=== PATIENT | female | born 1985 | race Caucasian/White ===

== ENCOUNTER 2025-06-08 13:33 | Outpatient (REF) | payer MEDICAID, SELFPAY ==
--- OUTSIDE RECORDS SUMMARY | 2025-06-08 10:15 | XMS_ITS | Encounter Summary ---
Author Organization [employer] Address [address] [place] [address] 7 [place] [address] Care Team Providers Care Technical Data Analyst Name Role Phone Missy eVra MD Primary Care Provide r Reason for Referral * Imaging (Routine) - Authorized Specialty Diagnoses / Procedures Referred By Huong azevedo Referred To Contact Radiology Diagnoses Encounter for screening mammogram for malignant neoplasm of breast Procedures BI Mammogram Screening Tomosynthesis Bilateral Missy Vera MD [address] [place] [address] Phone: tel: fax: [address] [phone] Phone: tel: fax: Referral ID Status Reason Start Date Expiration Date V isits Requested Visits Authorized [id number] Authorized 06/08/2025 06/08/2026 1 1 * Consultation (Routine) - Authorized Specialty Diagnoses / Procedures Referred By Huong azevedo Referred To Contact Nutrition Diagnoses Class 1 obesity due to excess calories without serious comorbidity with body mass index (BMI) of 33.0 to 33.9 in adult Missy Vera MD [address] [place] [address] Phone: tel: fax: Referral ID Status Reason Start Date Expiration Date Visits Requested Visits Authorized [id number] Authorized Consult and Treat 06/08/2025 06/08/2026 1 1 Encounter Details Date Type Department Care Team (Late st Contact Info) Description 06/08/2025 10:15 AM EST Office Visit [facility] [address] [place] [address] Missy Vera MD [address] [place] [address] Loss of libido (Primary Dx); Dietary counseling; Exercise counseling; Class 1 obesity due to excess calories without serious comorbidity with body mass index (BMI) of 33.0 to 33.9 in adult; Hirsutism; Hair loss; Epidermoid cyst; Encounter for screening mammogram for malignant neoplasm of breast; Encounter for immunization Social History Tobacco Use Types Packs/Day Years Used Date Smoking Tobacco: Never Smokeless Tobacco: Never Comments Unknown Sex and Gender Information Value Date Recorded Sex Assigned at Female 04/06/2025 8:51 AM EDT Legal Sex Female 10:42 AM EDT Gender Identity Female 04/06/2025 8:51 AM EDT Sexual Orientation Straight 04/06/2025 8: 51 AM EDT documented as of this encounter Last Filed Vital Signs Vital Sign Reading Time Taken Comments Blood Pressure 130/96 06/08/2025 10:31 AM EST Pulse 72 06/08/2025 10:31 AM EST Temperature 36.2 C (97.1 F) 06/08/2025 10:31 AM EST Respiratory Rate 17 06/08/2025 10:31 AM EST Oxygen Saturation 98% 06/08/2025 10:31 AM EST Inhaled Oxygen Concentration - - Weight 86.7 kg (191 lb 3.2 oz) 06/08/2025 10:31 AM EST Height 162 cm (5' 3.78 ) 06/08/2025 10:31 AM EST Body Mass Index 33.05 06/08/2025 10:31 AM EST documented in this encounter Progress Notes * Missy Shepard MD - 06/08/2025 10:15 AM EST SUBJECTIVE: Mónica Salas is a 40 y.o. year old female who presents for New Patient . 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 Negative for activity change, appetite change, chills, diaphoresis, fatigue and fever. HENT: Negative. Respiratory: Negative. Cardiovascular: Negative. Gastrointestinal: Negative. Genitourinary: Loss of libido Skin: Hair loss Weak nails OBJECTIVE: Vitals: 06/08/25 1031 BP: (!) 130/96 BP Location: Left arm Patient Position: Sitting BP Cuff Size: Adult Pulse: 72 Resp: 17 Temp: 97.1 ??F (36.2 ??C) TempSrc: Temporal SpO2: 98% Weight: 191 lb 3.2 oz (86.7 kg) Height: 5' 3.78 (1.62 m) Physical Exam Constitutional: Appearance: Normal appearance. Cardiovascular: Rate and Rhythm: Normal rate and regular rhythm. Pulmonary: Effort: Pulmonary effort is normal. Breath sounds: Normal breath sounds. Abdominal: General: Abdomen is flat. Palpations: Abdomen is soft. Musculoskeletal: Right lower leg: No edema. Left lower leg: No edema. Neurological: Mental Status: She is alert. Follow Up: Follow up for [facility] P[facility] . Medications Ordered Prior to Encounter[3] Problem List Items Addressed This Visit Class 1 obesity due to excess calories without serious comorbidity with body mass index (BMI) of 33.0 to 33.9 in adult Today extensive discussion was done about life style modifications I advise healthy diet (low calorie) and cardiovascular exercise Referral to nutrtionist Blood work ordered Patient will be contacted with results Relevant Orders Referral to Nutrition Therapy CBC auto differential Comprehensive Metabolic Panel Hemoglobin A1c HIV-1/2 Antigen and Antibodies, Fourth Generation, with Reflexes Hepatitis C Antibody with Reflex to HCV, RNA, Quantitative, Real-Time PCR Lipid Panel, Standard Vitamin D, 25-Hydroxy, Total, Immunoassay TSH with Reflex to Free T4 Loss of libido - Primary Relevant Orders FSH LH Hirsutism Relevant Orders FSH LH Anti-Mullerian Hormone (AMH), Female Hair loss Epidermoid cyst Patient is schedule for surgery on 08/10/24 Encounter for screening mammogram for malignant neoplasm of breast Relevant Orders BI Mammogram Screening Tomosynthesis Bilateral Other Visit Diagnoses Dietary counseling Exercise counseling Encounter for immunization Relevant Orders FLU VACCINE TRIVALENT [id number] (Fluarix) 19 yrs + (Completed) COVID-19 VACCINE [id number] (Comirnaty) 19 yrs + (Completed) [1] Patient Active Problem List Diagnosis Epidermoid cyst Difficulty losing weight Dizziness Hair loss Loss of libido Pain, arm, right Hirsutism Encounter for screening mammogram for malignant neoplasm of breast Class 1 obesity due to excess calories without serious comorbidity with body mass index (BMI) of 33.0 to 33.9 in adult [2] No family history on file. [3] No current outpatient medications on file prior to visit. No current facility-administered medications on file prior to visit. documented in this encounter Miscellaneous Notes * Assessment & Plan Note - Missy Shepard MD - 06/08/2025 12:59 PM EST Associated Problem(s): Class 1 obesity due to excess calories without serious comorbidity with bodymass index (BMI) of 33.0 to 33.9 in adult Today extensive discussion was done about life style modifications I advise healthy diet (low calorie) and cardiovascular exercise Referral to nutrtionist Blood work ordered Patient will be contacted with results * Assessment & Plan Note - Missy Shepard MD - 06/08/2025 10:40 AM EST Associated Problem(s): Epidermoid cyst Patient is schedule for surgery on 08/10/24 documented in this encounter Plan of Treatment Upcoming Encounters Date Type Department Care Team (Late st Contact Info) Description 07/04/2025 10:00 AM EST Telemedicine [facility] [address] [place] [address] Missy Vera MD [address] [place] [address] Scheduled Orders Name Type Priority Associated Diagnoses Orde r Schedule Comprehensive Metabolic Panel Lab Routine Class 1 obesity due to excess calories without serious comorbidity with body mass index (BMI) of 33.0 to 33.9 in adult Expected: 06/08/2025 (Approximate), Expires: 06/08/2026 HIV-1/2 Antigen and Antibodies, Fourth Generation, with Reflexes Lab Routine Class 1 obesity due to excess calories without serious comorbidity with body mass index (BMI) of 33.0 to 33.9 in adult Expected: 06/08/2025 (Approximate), Expires: 06/08/2026 Hepatitis C Antibody with Reflex to HCV, RNA, Quantitative, Real-Time PCR Lab Routine Class 1 obesity due to excess calories without serious comorbidity with body mass index (BMI) of 33.0 to 33.9 in adult Expected: 06/08/2025, Expires: 06/08/2026 Lipid Panel, Standard Lab Routine Class 1 obesity due to excess calories without serious comorbidity with body mass index (BMI) of 33.0 to 33.9 in adult Expected: 06/08/2025 (Approximate), Expires: 06/08/2026 Vitamin D, 25-Hydroxy, Total, Immunoassay Lab Routine Class 1 obesity due to excess calories without serious comorbidity with body mass index (BMI) of 33.0 to 33.9 in adult Expected: 06/08/2025 (Approximate), Expires: 06/08/2026 TSH with Reflex to Free T4 Lab Routine Class 1 obesity due to excess calories without serious comorbidity with body mass index (BMI) of 33.0 to 33.9 in adult Expected: 06/08/2025 (Approximate), Expires: 06/08/2026 FSH Lab Routine Loss of libido Hirsutism Expected: 06/08/2025, Expires: 06/08/2026 LH Lab Routine Loss of libido Hirsutism Expected: 06/08/2025 (Approximate), Expires: 06/08/2026 Anti-Mullerian Hormone (AMH), Female Lab Routine Hirsutism Expected: 06/08/2025 (Approximate), Expires: 06/08/2026 BI Mammogram Screening Tomosynthesis Bilateral Imaging Routine Encounter for screening mammogram for malignant neoplasm of breast Expected: 06/08/2025, Expires: 08/09/2026 Scheduled Referrals Name Type Priority Associated Diagnoses Orde r Schedule Referral to Nutrition Therapy Outpatient Referral Routine Class 1 obesity due to excess calories without serious comorbidity with body mass index (BMI) of 33.0 to 33.9 in adult Expected: 06/08/2025 (Approximate), Expires: 06/08/2026 documented as of this encounter Procedures Procedure Name Priority Date/Time Associated Diagnosis Comments CBC WITH AUTO DIFFERENTIAL Routine 06/08/2025 1:42 PM EST Class 1 obesity due to excess calories without serious comorbidity with body mass index (BMI) of 33.0 to 33.9 in adult HEMOGLOBIN A1C Routine 06/08/2025 1:42 PM EST Class 1 obesity due to excess calories without serious comorbidity with body mass index (BMI) of 33.0 to 33.9 in adult documented in this encounter Results * Hemoglobin A1c (06/08/2025 1:42 PM EST) Hemoglobin A1c 5.5 <6.0 % [facility] Comment:Hemoglobin A1C Refer ence Range Adults: 4.8 - 6.0 % Non diabetic: < 6.0 % Goal: < 7.0 %Additional Action Suggested: > 8.0 %Note: Hemoglobin A1c results are invalid for patients with abnormal amounts of HbF. Blood transfusions may impact the HbA1c concentration in the patient sample. Estimated Average Glucose 111 mg/dL [facility] Comment:eAG = Estimated ave rage glucose which is %A1C expressed asaverage glucose, using the formula of the V3F-AygmsixNvitvvn Glucose study (ADAG), Diabetes Care, Vol.31,#8,2007 Blood Venous blood specimen / Unknown 06/08/2025 1:42 PM EST 06/08/2025 4:05 PM EST us Missy Shepard MD LAB BLOOD ORDERABLES Final Result [facility] [address] [place] [address] [phone] * CBC auto differential (06/08/2025 1:42 PM EST) White Blood Count 7.3 4.8 - 10.8 X10*3/uL [facility] Red Blood Count 4.81 4.20 - 5.50 X10*6/uL [facility] Hemoglobin 13.8 12.0 - 16.0 g/dl [facility] Hematocrit 40.8 37.0 - 47.0 % [facility] Mean Corpuscular Volume 84.8 80.0 - 98.0 fL [facility] Mean Corpuscular Hemoglobin 28.7 27.0 - 33.0 pg [facility] Mean Corpuscular HGB Conc 33.8 31.0 - 35.0 g/dl [facility] Red Cell Distribution Width 12.8 11.0 - 16.0 % [facility] Platelet Count 272 160 - 400 X10*3/uL [facility] Mean Platelet Volume 10.2 9.4 - 12.3 fL [facility] Neutrophils Percent Auto 60.9 45 - 73 % [facility] Imm Gran Pct Auto 0.4 0.0 - 0.4 % [facility] Lymphocytes Percent Auto 29.5 20 - 40 % [facility] Monocytes Percent Auto 7.3 2 - 11 % [facility] Eosinophils Percent Auto 1.2 0 - 4 % [facility] Basophils Percent Auto 0.7 0 - 2 % [facility] NRBC Pct Auto 0.0 0.0 - 0.2 /100WBC [facility] Neutrophils Absolute Auto 4.5 2.0 - 8.3 x10*3/uL [facility] Imm Gran Abs Auto 0.03 0.00 - 0.03 X10*3/uL [facility] Lymphocytes Absolute Auto 2.2 1.2 - 4.9 X10*3/uL [facility] Monocytes Absolute Auto 0.5 0.1 - 1.2 X10*3/uL [facility] Eosinophils Absolute Auto 0.1 0.0 - 0.4 X10*3/uL [facility] Basophils Absolute Auto 0.1 0.0 - 0.2 X10*3/uL [facility] NRBC Abs Auto 0.000 0.0 - 0.012 X10*3/uL [facility] Blood Venous blood specimen / Unknown 06/08/2025 1:42 PM EST 06/08/2025 4:05 PM EST us Missy Shepard MD LAB BLOOD ORDERABLES Final Result [facility] [address] [place] [address] [phone] documented in this encounter Visit Diagnoses Diagnosis Loss of libido- Primary Decreased libido Dietary counseling Dietary surveillance and counseling Exercise counseling Class 1 obesity due to excess calories without serious comorbidity with body mass index (BMI) of 33.0 to 33.9 in adult Hirsutism Hair loss Unspecified alopecia Epidermoid cyst Sebaceous cyst Encounter for screening mammogram for malignant neoplasm of breast Encounter for immunization documented in this encounter Care Teams Technical Data Analyst Relationship Specialty Start Date End Date Missy Vera MD [address] [place] [phone] PCP - General Internal Medicine 06/08/25 documented as of this encounter
[2025-06-08 16:09] LABS: MANUAL DIFF FLAG NO
[2025-06-08 16:15] LABS: Hematocrit 40.8 % (37.0-47.0); Hemoglobin 13.8 g/dl (12.0-16.0); Imm Gran Abs Auto 0.03 X10*3/uL (0.00-0.03); Imm Gran Pct Auto 0.4 % (0.0-0.4); Lymphocytes Absolute Auto 2.2 X10*3/uL (1.2-4.9); Mean Corpuscular HGB Conc 33.8 g/dl (31.0-35.0); Mean Corpuscular Hemoglobin 28.7 pg (27.0-33.0); Mean Corpuscular Volume 84.8 fL (80.0-98.0); NRBC Abs Auto 0.000 X10*3/uL (0.0-0.012); NRBC Pct Auto 0.0 /100WBC (0.0-0.2); Platelet Count 272 X10*3/uL (160-400); Red Blood Count 4.81 X10*6/uL (4.20-5.50); White Blood Count 7.3 X10*3/uL (4.8-10.8)
--- OUTSIDE RECORDS SUMMARY | 2025-06-08 17:43 | XMS_ITS | Encounter Summary ---
Author Organization [employer] Address [address] [facility] 7 [place] [address] Care Team Providers Care Ed Case Manager Name Role Phone Missy Vera MD Primary Care Provide r Encounter Details Date Type Department Care Team (Latest Contact Info) Description 06/08/2025 Travel Social History Tobacco Use Types Packs/Day Years Used Date Smoking Tobacco: Never Smokeless Tobacco: Never Comments Unknown Sex and Gender Information Value Date Recorded Sex Assigned at Female 04/06/2025 8:51 AM EDT Legal Sex Female 10:42 AM EDT Gender Identity Female 04/06/2025 8:51 AM EDT Sexual Orientation Straight 04/06/2025 8: 51 AM EDT documented as of this encounter Plan of Treatment Upcoming Encounters Date Type Department Care Team (Late st Contact Info) Description 07/04/2025 10:00 AM EST Telemedicine [facility] [address] [place] [address] Missy Vera MD [address] [place] [address] documented as of this encounter Visit Diagnoses Not on filedocumented in this encounter Care Teams Ed Case Manager Relationship Specialty Start Date End Date Missy Vera MD [address] [place], [place] [phone] PCP - General Internal Medicine 06/08/25 documented as of this encounter
--- OUTSIDE RECORDS SUMMARY | 2025-06-08 17:43 | XMS_ITS ---
Author Name [facility] Organization Unknown History of Medication Use Medication Directions Dispensed Refills Start Date End Date Stat cephalexin 03/16/2025 active
--- OUTSIDE RECORDS SUMMARY | 2025-06-08 17:43 | XMS_ITS | Encounter Summary ---
Author Organization [employer] Address [address] [place] [address] 7 [place] [address] Care Team Providers Care Biomedical Specialist Name Role Phone Unavailable Primary Care Provider Unavailabl e Encounter Details Date Type Department Care Team (Latest Contact Info) Description 06/05/2025 Travel Social History Tobacco Use Types Packs/Day [...] 07/04/2025 10:00 AM EST Telemedicine [facility] [address] [place] [address] Missy Vera MD [address] [place] [address] documented as of this encounter Visit Diagnoses Not on filedocumented in this encounter
--- OUTSIDE RECORDS SUMMARY | 2025-06-08 17:43 | XMS_ITS | Clinical Summary ---
Author Organization [facility] Address [address] [place] [address] Care Team Providers Care Escalation Engineer Name Role Phone Missy Vera MD Primary Care Provider Allergies No known active allergies Encounters Date Type Department Care Team Description 05/18/2025 Telephone [facility] Plastic Cosmetic Surgery [address] [place] [address] Ordinary Seaman: Jocelyn Manuel MD 05/17/2025 1:30 PM EST Office Visit [facility] Plastic Cosmetic Surgery [address] [place] [phone] Ordinary Seaman: Jocelyn Manuel MD Pilar cyst of scalp (Primary Dx) 05/01/2025 Transcribe Orders [facility] [address] [place] [address] Missy Vera MD Epidermoid cyst (Primary Dx) from Last 3 Months Social History Tobacco Use Types Packs/Day Years Used Date Smoking Tobacco: Never Assessed Comments Unknown Sex and Gender Information Value Date Recorded Sex Assigned at Not on file Legal Sex Female 8:53 AM EDT Gender Identity Female 05/10/2025 1:55 PM EST Sexual Orientation Other 05/10/2025 1: 55 PM EST Plan of Treatment Upcoming Encounters Date Type Department Care Team (Late st Contact Info) Description 08/10/2025 9:20 AM EST Office Visit [facility] Plastic Cosmetic Surgery [address] [place] [address] Ordinary Seaman: Shari Frances, Jocelyn Scherer MD [address] [place] [phone] Health Maintenance Due Date Last Done Comments Cervical Cancer Screening 1983 HIV Screening 1983 HPV and Pap Smear 1983 Hepatitis C Screening 1983 Pap Smear 1983 Varicella Vaccines (1 of 2 - 13+ 2-dose series) 02/03/1996 Hepatitis B Vaccines (1 of 3 - 19+ 3-dose series) 2002 DTaP,Tdap,and Td Vaccines (1 - Tdap) 2005 Mammogram 2023 Alcohol/Substance Use Screening 07/05/2024 Depression Screening and Follow-Up 07/05/2024 Social Drivers of Health Destiny ual Screening 07/05/2024 Influenza Vaccine (#1) 2025 COVID-19 Vaccine (1 - 2024-2 6 season) 2025 Pneumococcal Vaccine: Pediat gómez (0-5 Years) and At-Risk Patients (6-50 Years) Aged Out No longer eligible b ased on patient's age to complete this topic [place] [address] [place] [address] HSNO/FREE CARE Care Teams Escalation Engineer Relationship Specialty Start Date End Date Missy Vera MD [address] [place] [phone] PCP - General Internal Medicine 05/01/25
--- OUTSIDE RECORDS SUMMARY | 2025-06-08 17:43 | XMS_ITS | Encounter Summary ---
Author Organization [employer] Address [address] [place] [address] [address] [place] [address] Care Team Providers Care Fitter Tacker Name Role Phone Unavailable Primary Care Provider Unavailabl e Reason for Visit * Reason Onset Date Comments chart prep 06/07/2025 Encounter Details Date Type Department Care Team (Late Contact Info) Description 06/07/2025 Telephone [facility] [address] [place] [phone] Missy Vera MD [address] [place], [place] [phone] chart prep Social History Tobacco Use Types Packs/Day Years Used Date Smoking Tobacco: Never Smokeless Tobacco: Never Comments Unknown Sex and Gender Information Value Date Recorded Sex Assigned at Female 04/06/2025 8:51 AM EDT Legal Sex Female 10:42 AM EDT Gender Identity Female 04/06/2025 8:51 AM EDT Sexual Orientation Straight 04/06/2025 8: 51 AM EDT documented as of this encounter Miscellaneous Notes * Telephone Encounter - Luna Rajan [place] - 06/07/2025 2:37 PM EST Chart Prep Labs: not applicable Images: not applicable Referrals: complete Vaccines due: Covid, Flu, Tdap, Hep B, and HPV Screenings: mammogram and pap smear Overdue care gaps: SBIRT, SDOH, PHQ-9, and DAE-7 documented in this encounter Plan of Treatment Upcoming Encounters Date Type Department Care Team (Late Contact Info) Description 07/04/2025 10:00 AM EST Telemedicine [facility] [address] [place] [phone] Missy Vera MD [address] [place] [phone] documented as of this encounter Visit Diagnoses Not on filedocumented in this encounter
--- OUTSIDE RECORDS SUMMARY | 2025-06-08 17:43 | XMS_ITS | Encounter Summary ---
Author Organization [facility] Address [address] [place] [address] Care Team Providers Care Mechanic Name Role Phone Missy Vera MD Primary Care Provider Reason for Referral * Surgical (Routine) - Authorized Specialty Diagnoses / Procedures Referred By Huong azevedo Referred To Contact Plastic Surgery Diagnoses Epidermoid cyst Missy Vera MD [address] [place] [address] Phone: tel: fax: [facility] Plastic Cosmetic Surgery [address] [place] [address] Phone: tel: fax: Referral ID Status Reason Start Date Expiration Date Visits Requested Visits Authorized [id number] Authorized Specialty Services Required 06/01/2026 6 6 Encounter Details Date Type Department Care Team (Latest Contact Info) Description 05/01/2025 Transcribe Orders [facility]ician Referral Services [address] [place] [address] Missy Vera MD [address] [place] [address] Epidermoid cyst (Primary Dx) Social History Tobacco Use Types Packs/Day Years Used Date Smoking Tobacco: Never Assessed Comments Unknown Sex and Gender Information Value Date Recorded Sex Assigned at Not on file Legal Sex Female 8:53 AM EDT Gender Identity Female 05/10/2025 1:55 PM EST Sexual Orientation Other 05/10/2025 1: 55 PM EST documented as of this encounter Plan of Treatment Upcoming Encounters Date Type Department Care Team (Late st Contact Info) Description 08/10/2025 9:20 AM EST Office Visit [facility] Plastic Cosmetic Surgery [address] [place] [address] Freelance Patternmaker: Jocelyn Manuel MD [address] [place] [phone] Scheduled Referrals Name Type Priority Associated Diagnoses Order Schedule Ambulatory referral to General Surgery Outpatient Referral Routine Epidermoid cyst Expected: 05/01/2025, Expires: 06/01/2026 documented as of this encounter Visit Diagnoses Diagnosis Epidermoid cyst- Primary Sebaceous cyst documented in this encounter Care Teams Mechanic Relationship Specialty Start Date End Date Missy Vera MD [address] [place] [address] PCP - General Internal Medicine 05/01/25 documented as of this encounter
--- OUTSIDE RECORDS SUMMARY | 2025-06-08 17:43 | XMS_ITS | Clinical Summary ---
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 Name Role Phone Missy Vera MD Primary Care Provide r Allergies No known active allergies Active Problems Problem Noted Date Diagnosed Date Hirsutism 06/08/2025 Encounter for screening mamm ogram for malignant neoplasm of breast 06/08/2025 Class 1 obesity due to exces s calories without serious comorbidity with body mass index (BMI) of 33.0 to 33.9 in adult 06/08/2025 Assessment & Plan (06/08/2025 12:59 PM EST): Today extensive discussion was done about life style modifications I advise healthy diet (low calorie) and cardiovascular exercise Referral to nutrtionist Blood work ordered Patient will be contacted with results Difficulty losing weight 06/07/2025 Dizziness 06/07/2025 Hair loss 06/07/2025 Loss of libido 06/07/2025 Epidermoid cyst 04/06/2025 Assessment & Plan (06/08/2025 10:40 AM EST): Patient is schedule for surgery on 08/10/24 Pain, arm, right 04/04/2025 Encounters Date Type Department Care Team Description 06/08/2025 10:15 AM EST Office Visit [facility] [address] [place] [address] Missy Vera MD Loss of libido (Primary Dx); Dietary counseling; Exercise counseling; Class 1 obesity due to excess calories without serious comorbidity with body mass index (BMI) of 33.0 to 33.9 in adult; Hirsutism; Hair loss; Epidermoid cyst; Encounter for screening mammogram for malignant neoplasm of breast; Encounter for immunization 06/08/2025 Travel 06/07/2025 Telephone [facility] [address] [place] [phone] Missy Vera MD chart prep 06/05/2025 Travel 05/29/2025 Patient Outreach [address] [phone] Missy Vera MD Pre-visit Planning (Pre-visit planning - LVM ) 04/06/2025 9:00 AM EDT Office Visit [facility] [address] [place] [phone] Missy Vera MD Epidermoid cyst 04/06/2025 Travel from Last 3 Months Immunizations Immunization Administration Dates Next Due Influenza, seasonal, injectable, preservative fr ee 06/08/2025 Pfizer Covid-19 Vaccine 12+ 06/08/2025 Social History Tobacco Use Types Packs/Day Years Used Date Smoking Tobacco: Never Smokeless Tobacco: Never Tobacco Cessation:Counseling Given: Not Answered Comments Unknown Sex and Gender Information Value Date Recorded Sex Assigned at Female 04/06/2025 8:51 AM EDT Legal Sex Female 10:42 AM EDT Gender Identity Female 04/06/2025 8:51 AM EDT Sexual Orientation Straight 04/06/2025 8: 51 AM EDT Last Filed Vital Signs Vital Sign Reading [...] Mass Index 33.05 06/08/2025 10:31 AM EST Plan of Treatment Upcoming Encounters Date Type Department Care Team (Late st Contact Info) Description 07/04/2025 10:00 AM EST Telemedicine [facility] [address] [place] [phone] Missy Vera MD [address] [place], [place] [phone] Health Maintenance Due Date Last Done Comments Depression Screening 1983 HIV Screening 1983 Lipid Panel 1983 SDOH Screening 1983 Alcohol/Substance Use Screening 1995 Family Planning (PISQ) 1998 HPV Vaccines (1 - 3-dose series) 1998 Hepatitis C Screening 2001 DTaP/Tdap/Td Vaccines (1 - Tdap) 2002 Hepatitis B Vaccines (1 of 3 - 19+ 3-dose series) 2002 Pap Smear 02/03/2004 Cervical Cancer Screening 2013 HPV/Cotest 2013 Mammogram 2023 Disability Screening 06/05/2026 06/05/2025 Tobacco Screening 06/08/2026 06/08/2025 Zoster Vaccines (1 of 2) 2033 RSV Patients and Pa tients Aged 60 years or older (1 - 1-dose 75+ series) 2058 COVID-19 Vaccine Completed 06/08/2025 Influenza Vaccine Completed 06/08/2025 HIB Vaccines Aged Out No longer eligi ble based on patient's age to complete this topic Hepatitis A Vaccines Aged Out No long er eligible based on patient's age to complete this topic IPV Vaccines Aged Out No longer eligi ble based on patient's age to complete this topic Meningococcal B Vaccine Aged Out No l onger eligible based on patient's age to complete this topic Meningococcal Vaccine Aged Out No cherri dave eligible based on patient's age to complete this topic Pneumococcal Vaccine: Pediat rics (0 to 5 Years) and At-Risk Patients (6 to 49) Years Aged Out No longer eligi ble based on patient's age to complete this topic RSV under 20 months Aged Out No longe r eligible based on patient's age to complete this topic Rotavirus Vaccines Aged Out No longer eligible based on patient's age to complete this topic Procedures Procedure Name Priority Date/Time Associated Diagnosis Comments HEMOGLOBIN A1C Routine 06/08/2025 1:42 PM EST Class 1 obesity due to excess calories without serious comorbidity with body mass index (BMI) of 33.0 to 33.9 in adult CBC WITH AUTO DIFFERENTIAL Routine 06/08/2025 1:42 PM EST Class 1 obesity due to excess calories without serious comorbidity with body mass index (BMI) of 33.0 to 33.9 in adult from Last 3 Months Results * CBC auto differential (06/08/2025 1:42 PM EST) White Blood Count 7.3 4.8 - 10.8 X10*3/uL [facility] Red Blood Count 4.81 4.20 - 5.50 X10*6/uL [facility] Hemoglobin 13.8 12.0 - 16.0 g/dl [facility] Hematocrit 40.8 37.0 - 47.0 % [facility] Mean Corpuscular Volume 84.8 80.0 - 98.0 fL [facility] Mean Corpuscular Hemoglobin 28.7 27.0 - 33.0 pg [facility] Mean Corpuscular HGB Conc 33.8 31.0 - 35.0 g/dl [facility] Red Cell Distribution Width 12.8 11.0 - 16.0 % [facility] Platelet Count 272 160 - 400 X10*3/uL [facility] Mean Platelet Volume 10.2 9.4 - 12.3 fL [facility] Neutrophils Percent Auto 60.9 45 - 73 % [facility] Imm Gran Pct Auto 0.4 0.0 - 0.4 % [facility] Lymphocytes Percent Auto 29.5 20 - 40 % [facility] Monocytes Percent Auto 7.3 2 - 11 % [facility] Eosinophils Percent Auto 1.2 0 - 4 % [facility] Basophils Percent Auto 0.7 0 - 2 % [facility] NRBC Pct Auto 0.0 0.0 - 0.2 /100WBC [facility] Neutrophils Absolute Auto 4.5 2.0 - 8.3 x10*3/uL [facility] Imm Gran Abs Auto 0.03 0.00 - 0.03 X10*3/uL [facility] Lymphocytes Absolute Auto 2.2 1.2 - 4.9 X10*3/uL [facility] Monocytes Absolute Auto 0.5 0.1 - 1.2 X10*3/uL [facility] Eosinophils Absolute Auto 0.1 0.0 - 0.4 X10*3/uL [facility] Basophils Absolute Auto 0.1 0.0 - 0.2 X10*3/uL [facility] NRBC Abs Auto 0.000 0.0 - 0.012 X10*3/uL [facility] Blood Venous blood specimen / Unknown 06/08/2025 1:42 PM EST 06/08/2025 4:05 PM EST us Missy Shepard MD LAB BLOOD ORDERABLES Final Result Performing Organization Address City/[facility]/ZIP Co de Phone Number [facility] [address] [place] [phone] * Hemoglobin A1c (06/08/2025 1:42 PM EST) Hemoglobin A1c 5.5 <6.0 % [facility] Comment:Hemoglobin A1C Refer ence Range Adults: 4.8 - 6.0 % Non diabetic: < 6.0 % Goal: < 7.0 %Additional Action Suggested: > 8.0 %Note: Hemoglobin A1c results are invalid for patients with abnormal amounts of HbF. Blood transfusions may impact the HbA1c concentration in the patient sample. Estimated Average Glucose 111 mg/dL [facility] Comment:eAG = Estimated ave rage glucose which is %A1C expressed asaverage glucose, using the formula of the A8P-WiinmvwYqkajlx Glucose study (ADAG), Diabetes Care, Vol.31,#8,Feb. 2007 Blood Venous blood specimen / Unknown 06/08/2025 1:42 PM EST 06/08/2025 4:05 PM EST us Missy Shepard MD LAB BLOOD ORDERABLES Final Result [facility] [address] [place] [address] [phone] from Last 3 Months Insurance [facility] [employer] FULL Care Teams Pasteurizing Supervisor Relationship Specialty Start Date End Date Missy Vera MD [address] [place] [phone] PCP - General Internal Medicine 06/08/25
[2025-06-08 18:41] LABS: Alanine Aminotransferase 15 U/L (0-31); Albumin Level 4.7 g/dL (3.5-5.0); Alkaline Phosphatase 47 U/L (39-117); Anion Gap 12 (12-20); Aspartate Amino Transferase 21 U/L (5-31); Blood Urea Nitrogen 12 mg/dL (9-16); Calcium 9.2 mg/dL (8.4-10.2); Carbon Dioxide 21 mmol/L (22-29); Chloride 110 mmol/L (96-108); Cholesterol 156 mg/dL (<200); Estimated Glomerular Filt Rate > 60; HDL Cholesterol 53 mg/dL (>40); Potassium 3.7 mmol/L (3.3-5.1); Sodium 139 mmol/L (135-145); Total Protein 7.3 g/dL (6.5-8.0); Triglycerides 97 mg/dL (<150)
[2025-06-09 07:04] LABS: Follicle Stimulating Hormone 2.7 mIU/mL
[2025-06-09 08:19] LABS: HIV Num 1 0.05 S/CO (0.00-0.99); ~HepC Num1 0.53 S/CO (0.00-0.79); ~Hepatitis C Antibody Nonreactive (Nonreactive)
== END 2025-06-08 13:34 | disposition home or self-care (01) ==
LOC: HO.HHCL 13:33
PROVIDERS: PCP Internal Medicine; Visit Provider Internal Medicine
DX: Z11.4 Encounter for screening for human immunodeficiency virus [HIV] (principal); R68.82 Decreased libido; L68.0 Hirsutism; E66.811 Obesity, class 1; Z68.33 Body mass index [BMI] 33.0-33.9, adult
CPT/HCPCS: 36415; 80053; 80061; 82166; 82306; 83001; 83002; 83036; 84443; 85025; 86803; 87389

== ENCOUNTER 2025-06-18 11:48 | Outpatient (REF) | payer MEDICAID, SELFPAY ==
--- NOTE | ~2025-06-18 | MM_ITS ---
EXAMINATION: MM SCREENING DIGITAL BREAST TOMOSYNTHESIS, BILATERAL CLINICAL INFORMATION: Screening. Asymptomatic. COMPARISON: Mammography: Baseline. TECHNIQUE: Digital breast mammography with tomosynthesis is performed in both the craniocaudal and mediolateral oblique views along with computer-aided detection (CAD). FINDINGS: There are scattered areas of fibroglandular density. There are no significant masses, abnormal calcifications, or other abnormalities. MM/MM tomosynthesis screening BI IMPRESSION: No mammographic evidence of malignancy. ASSESSMENT: BI-RADS Category 1: Negative RECOMMENDATION: Routine annual mammography screening. 1 year F/U This examination should not preclude the clinical evaluation of a suspicious palpable abnormality. This patient's information was entered into a reminder system with a target due date for their next mammogram. Electronically signed by: Jihan Koehler DO 06/20/2025 04:11 PM MING TAMAYO
== END 2025-06-18 11:49 | disposition home or self-care (01) ==
LOC: HO.MAMMO 11:48
PROVIDERS: PCP Internal Medicine; Visit Provider Internal Medicine
DX: Z12.31 Encounter for screening mammogram for malignant neoplasm of breast (principal)
CPT/HCPCS: 77063; 77067

== ENCOUNTER → 2025-06-18 12:00 | Outpatient (BNV) | payer MEDICAID, SELFPAY | PROVIDERS: PCP Internal Medicine; Visit Provider Internal Medicine | DX: Z12.31 Encounter for screening mammogram for malignant neoplasm of breast (principal) | CPT/HCPCS: 77063; 77067 ==